=== PATIENT | male | born 1950 | race Two or more races ===

== ENCOUNTER 2022-04-14 08:17 | Outpatient (CLI) | payer MEDICARE ==
[2022-04-14 09:12] LABS: ALBUMIN 4.1 g/dL (3.2-5.5); ALBUMIN/GLOBULIN RATIO 1.5 (1.0-2.2); ALKALINE PHOSPHATASE 52 IU/L (42-121); ALT ALANINE AMINOTRANSFERASE 20 IU/L (10-60); AST ASPARTATE AMINOTRANSFERASE 20 IU/L (10-42); BILIRUBIN,TOTAL 0.7 mg/dL (0.2-1.0); BUN - BLOOD UREA NITROGEN 18 mg/dL (6-20); CALCIUM 9.6 mg/dL (8.5-10.3); CARBON DIOXIDE - CO2 25 mmol/L (21-32); CHLORIDE 104 mmol/L (101-111); CHOLESTEROL 222 mg/dL; CREATININE 0.8 mg/dL (0.6-1.2); GFR - MDRD 95 (>89); GLUCOSE 103 mg/dL (70-100); HDL CHOLESTEROL 55 mg/dL; LDL CHOLESTEROL,CALCULATED 157 mg/dL; LDL/HDL RATIO 2.9 (<3.6); POTASSIUM 4.1 mmol/L (3.5-5.0); SODIUM 138 mmol/L (135-145); TOTAL PROTEIN 6.9 g/dL (6.7-8.2); TRIGLYCERIDES 51 mg/dL; VLDL CHOLESTEROL 10 mg/dL
[2022-04-14 09:15] LABS: THYROID STIMULATING HORMONE 1.09 uIU/mL (0.34-5.60)
[2022-04-14 09:19] LABS: FREE T4 (FREE THYROXINE) 1.02 ng/dL (0.58-1.64)
== END 2022-04-14 08:18 | disposition home or self-care (01) ==
LOC: LAB 08:17
PROVIDERS: ATTEND Internal Medicine
DX: E03.9 Hypothyroidism, unspecified (principal); I25.10 Atherosclerotic heart disease of native coronary artery without angina pectoris
CPT/HCPCS: 36415; 80053; 80061; 83721; 84439; 84443

== ENCOUNTER 2022-12-18 09:13 | Outpatient (CLI) | payer MEDICARE ==
[2022-12-18 09:34] LABS: BASOPHILS # (AUTO) 0.1 10^3/uL (0.0-0.1); BASOPHILS % (AUTO) 0.8 %; EOSINOPHILS # (AUTO) 0.3 10^3/uL (0.0-0.7); EOSINOPHILS % (AUTO) 5.3 %; HCT - HEMATOCRIT 44.1 % (42.0-52.0); HGB - HEMOGLOBIN 14.9 g/dL (14.0-18.0); LYMPHOCYTES # (AUTO) 2.1 10^3/uL (1.5-3.5); LYMPHOCYTES % (AUTO) 33.8 %; MEAN CORPUSCULAR HEMOGLOBIN 31.2 pg (27.0-31.0); MEAN CORPUSCULAR HGB CONC 33.8 g/dL (32.0-36.0); MEAN CORPUSCULAR VOLUME 92.3 fL (80.0-94.0); MONOCYTES # (AUTO) 0.6 10^3/uL (0.0-1.0); MONOCYTES % (AUTO) 9.4 %; NEUTROPHILS # (AUTO) 3.1 10^3/uL (1.5-6.6); NEUTROPHILS % (AUTO) 50.7 %; PLT - PLATELET COUNT 247 10^3/uL (130-450); RED BLOOD COUNT 4.78 10^6/uL (4.70-6.10); RED CELL DISTRIBUTION WIDTH 13.8 % (12.0-15.0); WHITE BLOOD COUNT 6.1 x10^3/uL (4.8-10.8)
[2022-12-18 09:47] LABS: ALBUMIN 4.1 g/dL (3.2-5.5); ALBUMIN/GLOBULIN RATIO 1.6 (1.0-2.2); BILIRUBIN,TOTAL 0.6 mg/dL (0.2-1.0); CALCIUM 9.8 mg/dL (8.5-10.3); CREATININE 0.9 mg/dL (0.6-1.3); CRP - C-REACTIVE PROTEIN 0.6 mg/dL (<0.5); POTASSIUM 4.1 mmol/L (3.5-4.5); TOTAL PROTEIN 6.6 g/dL (6.4-8.9)
[2022-12-22 15:09] LABS: A/G RATIO 1.3 (0.7-1.7); ALBUMIN 3.7 g/dL (2.9-4.4); ALPHA-1-GLOBULIN 0.2 g/dL (0.0-0.4); ALPHA-2-GLOBULIN 0.7 g/dL (0.4-1.0); BETA GLOBULIN 0.9 g/dL (0.7-1.3); GLOBULIN, TOTAL 2.8 g/dL (2.2-3.9); PROTEIN TOTAL 6.5 g/dL (6.0-8.5)
== END 2022-12-18 09:14 | disposition home or self-care (01) ==
LOC: LAB 09:13
PROVIDERS: ATTEND Internal Medicine
DX: D75.9 Disease of blood and blood-forming organs, unspecified (principal); M54.16 Radiculopathy, lumbar region; I25.10 Atherosclerotic heart disease of native coronary artery without angina pectoris
CPT/HCPCS: 36415; 80053; 81599; 84155; 84156; 84165; 84166; 85025; 86140